=== PATIENT | female | born 1970 ===

== ENCOUNTER → 2018-06-01 | Outpatient (CLI) | payer OTHER | END | disposition home or self-care (01) | LOC: LAB 09:49 → LAB SHORT 09:49 | DX: R21 Rash and other nonspecific skin eruption (principal) | CPT/HCPCS: 85651; 86038 ==

== ENCOUNTER → 2019-11-28 | Outpatient (CLI) | payer OTHER ==
[2019-11-28 14:59] LABS: Free Thyroxine 0.79 ng/dL (0.70-1.60)
[2019-11-28 15:03] LABS: Thyroid Stimulating Hormone 0.954 uIU/mL (0.360-4.800)
== END | disposition home or self-care (01) ==
LOC: LAB SHORT 13:22 → LAB 13:22
PROVIDERS: Hospitalist
DX: L85.3 Xerosis cutis (principal)
CPT/HCPCS: 84439; 84443

== ENCOUNTER → 2020-01-14 | Outpatient (CLI) | payer OTHER | END | disposition home or self-care (01) | LOC: LAB SHORT 13:43 → LAB 13:43 | PROVIDERS: Hospitalist | DX: Z12.4 Encounter for screening for malignant neoplasm of cervix (principal); R21 Rash and other nonspecific skin eruption | CPT/HCPCS: 85651 ==